=== PATIENT | female | born 1975 | race Caucasian/White ===

== ENCOUNTER 2018-02-07 06:35 | Emergency (ER) | payer OTHER ==
[~2018-02-07] VITALS: Ht 160 cm; Wt 55.0 kg
[~2018-02-07 06:35] MED LIST: MEGE40 PO; TOPI25 PO; TRAM50TA4 PO; VENL-53 PO; ZOLP5 PO
[2018-02-07 07:05] VITALS: BP 136/90
[2018-02-07] MEDS ORDERED: IBUPROFEN 600 MG TABLET PO ONE (07:15)
[2018-02-07] MEDS ORDERED: DEXAMETHASONE SOD PHOS 4 MG/ML 5 ML VIAL IM ONE (07:15)
== END 2018-02-07 07:52 | disposition home or self-care (01) ==
LOC: EMS 06:36
DX: J02.8 Acute pharyngitis due to other specified organisms (principal); J40 Bronchitis, not specified as acute or chronic; J32.9 Chronic sinusitis, unspecified; B97.89 Other viral agents as the cause of diseases classified elsewhere; G43.909 Migraine, unspecified, not intractable, without status migrainosus
CPT/HCPCS: 96372; 99283; J1100

== ENCOUNTER 2019-09-19 11:23 | Emergency (ER) | payer OTHER ==
[~2019-09-19] VITALS: Ht 162.6 cm; Wt 65.9 kg
[2019-09-19 15:18] LABS: INFLUENZA TYPE A NEGATIVE FOR TYPE A (NEGATIVE); INFLUENZA TYPE B NEGATIVE FOR TYPE B (NEGATIVE); RAPID GROUP A STREP NEGATIVE (NEGATIVE)
[2019-09-19 17:12] VITALS: BP 136/93
== END 2019-09-19 17:38 | disposition home or self-care (01) ==
LOC: EMS 11:26
DX: J02.9 Acute pharyngitis, unspecified (principal); R09.82 Postnasal drip; G43.909 Migraine, unspecified, not intractable, without status migrainosus; Z90.710 Acquired absence of both cervix and uterus
CPT/HCPCS: 87430; 87804

== ENCOUNTER → 2020-11-20 | Emergency (ER) | payer OTHER ==
[~2020-11-20] VITALS: Ht 170.2 cm; Wt 52.3 kg
[~2020-11-20] MED LIST changes: +IBUP-2759 PO; -MEGE40 PO; -TOPI25 PO; -TRAM50TA4 PO; -VENL-53 PO; -ZOLP5 PO
[2020-11-20 20:15] LABS: COVID AG,FIA SOURCE NASAL SWAB
[2020-11-20 20:43] VITALS: BP 146/89
[2020-11-20 20:48] LABS: RAPID GROUP A STREP NEGATIVE (NEGATIVE)
== END | disposition home or self-care (01) ==
LOC: EMS 16:49
DX: U07.1 COVID-19 (principal)
CPT/HCPCS: 87426; 87430; 99283